=== PATIENT | female | born 1980 | race Caucasian/White ===

== ENCOUNTER 2017-07-22 06:35 | Day surgery (SDC) | payer BC ==
[~2017-07-22 06:35] MED LIST: Lactated Ringers 1,000 ML IV SCH; Lidocaine 1%/Sod Bicarbonate in NS 8.4% 1 ML Syringe PRN; Sodium Chloride 0.9% 10 ML Syringe FLUSH PRN
[2017-07-22] MEDS ORDERED: Propofol 200 MG/20 ML SDV ONE (07:26)
--- NOTE | 2017-07-22 07:43 | PCM.PREANE ---
Preanesthetic Assessment - Anesthesia/Transfusion/Family Hx Anesthesia History: Prior Anesthesia Reaction (PONV) Family History of Anesthesia Reaction: No Transfusion History: No Prior Transfusion(s) Intubation History: Unknown - Review of Systems General: No Symptoms Pulmonary: No Symptoms Cardiovascular: No Symptoms Gastrointestinal: No Symptoms Neurological: No Symptoms Other: Reports: None - Physical Assessment NPO Status Date: 07/21/17 NPO Status Time: 21:30 Pulse: 55 O2 Sat by Pulse Oximetry: 99 Respiratory Rate: 16 Blood Pressure: 103/70 Vital Signs: Last Vital Signs Temp 37.2 C 07/22/17 07:05 Pulse 55 L 07/22/17 07:05 Resp 16 07/22/17 07:05 BP 103/70 07/22/17 07:05 Pulse Ox 99 07/22/17 07:05 Height: 1.78 m Weight: 73.936 kg ASA Class: 1 Mental Status: Alert & Oriented x3 Airway Class: Mallampati = 1 Dentition: Reports: Normal Dentition Thyro-Mental Finger Breadths: 3 Mouth Opening Finger Breadths: 3 ROM/Head Extension: Full Lungs: Clear to Auscultation, Normal Respiratory Effort Cardiovascular: Regular Rate, Regular Rhythm - Allergies Allergies/Adverse Reactions: Allergies Allergy/AdvReac Type Severity Reaction Status Date / Time hydrocodone Allergy Nausea and Verified 07/21/17 12:47 Vomiting - Acknowledgements Anesthesia Type Planned: MAC Pt an Appropriate Candidate for the Planned Anesthesia: Yes Alternatives and Risks of Anesthesia Discussed w Pt/Guardian: Yes Pt/Guardian Understands and Agrees with Anesthesia Plan: Yes PreAnesthesia Questionnaire HEENT History: Reports: Allergic Rhinitis, Impaired Vision Cardiovascular History: Reports: None Respiratory History: Reports: None Gastrointestinal History: Reports: GERD Other Gastrointestinal History: bloating, heartburn, severe dyspepsia Genitourinary History: Reports: None [employer] History: Reports: Other OB/BYN History: HPV, dyspareunia, irreg menses, metrorrhagia, cervical intraepithelial neoplasia Musculoskeletal History: Reports: None, Other (See Below) Neurological History: Reports: Migraines, Neuropathy, Peripheral, Other (See Below) (pt states has neck pain due to nerves-has them 'burned' with relief, ROM not affected) Psychiatric History: Reports: Anxiety, Other (See Below) Other Psychiatric History: insomnia Endocrine/Metabolic History: Reports: None Hematologic History: Reports: None Immunologic History: Reports: None Oncologic (Cancer) History: Reports: None, Malignant Melanoma Dermatologic History: Reports: Melanoma, Other (See Below) Other Dermatologic History: viral rash - Past Surgical History Head Surgeries/Procedures: Reports: None HEENT Surgical History: Reports: Naso-Sinus Surgery Cardiovascular Surgical History: Reports: None Respiratory Surgical History: Reports: None GI Surgical History: Reports: None Female Surgical History: Reports: Hysterectomy, LEEP, Oophorectomy Male Surgical History: Reports: None Neurological Surgical History: Reports: None Oncologic Surgical History: Reports: None - SUBSTANCE USE Smoking Status *Q: Never Smoker Second Hand Smoke Exposure: No Days Per Week of Alcohol Use: 1 Number of Drinks Per Day: 1 Total Drinks Per Week: 1 Recreational Drug Use History: No - HOME MEDS Home Medications: Home Meds Gabapentin [Gabapentin] 300 mg PO TID 10/25/15 [History] LORazepam [LORazepam] 0.5 mg PO Q8H PRN 10/25/15 [History] Zolpidem [Ambien] 10 mg PO BEDTIME PRN 10/25/15 [History] traMADol [Ultram ER] 200 mg PO BEDTIME PRN 10/25/15 [History] Montelukast [Singulair] 10 mg PO DAILY 07/21/17 [History] Omeprazole 20 mg PO DAILY 07/21/17 [History] - CURRENT (IN HOUSE) MEDS Current Meds: Current Medications Lactated Ringer's (Ringers, Lactated) 1,000 mls @ 125 mls/hr IV ASDIRECTED ROSE MARY Stop: 07/22/17 23:00 Last Admin: 07/22/17 07:20 Dose: 125 mls/hr Lidocaine/Sodium Bicarbonate (Buffered Lidocaine 1% In Ns 8.4%) 0.25 ml .XX ONETIME PRN PRN Reason: Prior to IV Start Stop: 07/22/17 18:00 Last Admin: 07/22/17 07:20 Dose: 0.25 ml Sodium Chloride (Saline Flush) 10 ml FLUSH ASDIRECTED PRN PRN Reason: Keep Vein Open Stop: 07/22/17 18:00 Discontinued Medications Propofol (Diprivan 20 Ml) Confirm Administered Dose 200 mg .ROUTE .STK-MED ONE Stop: 07/22/17 07:27
--- NOTE | 2017-07-22 08:26 | PCM48HPAN ---
Post Anesthesia Note - EVALUATION WITHIN 48HRS OF ANESTHETIC Vital Signs in Normal Range: Yes Patient Participated in Evaluation: Yes Respiratory Function Stable: Yes Airway Patent: Yes Cardiovascular Function Stable: Yes Hydration Status Stable: Yes Pain Control Satisfactory: Yes Nausea and Vomiting Control Satisfactory: Yes Mental Status Recovered: Yes
[2017-07-22 08:30] VITALS: BP 94/65
--- NOTE | 2017-07-22 08:30 | PCM.OPNOTE ---
- General Post-Op/Procedure Note Date of Surgery/Procedure: 07/22/17 Operative Procedure(s): Esophagogastroduodenoscopy with proximal and distal: Forceps esophageal biopsies 2. Antral biopsy 1. Findings: Mild antritis. Normal esophagus and normal duodenum and no hiatal hernia. Pre Op Diagnosis: Chronic GERD with epigastric discomfort Post-Op Diagnosis: Antritis chronic Anesthesia Technique: MAC, Moderate Sedation Primary Surgeon: Mushtaq Medel Pathology: Esophageal biopsies along with antral biopsies EBL in mLs: 0 Complications: None Condition: Good Free Text/Narrative:: After adequate IV sedation and analgesia was obtained with monitoring the patient was placed on her left side. A lubricated upper endoscope was inserted through a bite-block into the esophagus and advanced under direct vision towards the stomach with air insufflation. The scope was advanced towards the antrum in which there were linear erythematous streaks without erosions or ulcerations. There were no mass lesions. I advanced the scope into the second part of the duodenum where the ampulla of Vater was seen. The second and first part of the duodenum were endoscopically normal. There were no ulcers. The scope was then withdrawn to the antral region which I biopsied for histologic evaluation. In the retroflexed view there was no hiatal hernia. The fundic and cardiac areas were normal. The stomach folds were also normal. There was no gastritis. With the scope in the distal esophagus and GE junction was sharp at about 32 cm from the incisors. 2 biopsies were taken of this area for evaluation. The body of the esophagus was unremarkable. Within the proximal third I took 2 additional random biopsies for evaluation. On extubation the vocal cords were briefly visualized and were normal. Global Ceo photographs were taken for the patient and for the medical record. There were no procedural complications.
== END 2017-07-22 08:50 | disposition home or self-care (01) ==
LOC: JD.SDS 06:35
PROVIDERS: ATTEND Surgery
DX: K31.9 Disease of stomach and duodenum, unspecified (principal); B33.20 Viral carditis, unspecified; F41.9 Anxiety disorder, unspecified; Z88.8 Allergy status to other drugs, medicaments and biological substances; Z79.899 Other long term (current) drug therapy; Z90.710 Acquired absence of both cervix and uterus
CPT/HCPCS: 43239; J7120; 00740; J2704

== ENCOUNTER 2022-07-17 05:55 | Day surgery (SDC) | payer BC ==
[~2022-07-17 05:55] MED LIST changes: +Lidocaine 1%/Sod Bicarbonate in NS 8.4% 1 ML Syringe IDERM PRN; -Lidocaine 1%/Sod Bicarbonate in NS 8.4% 1 ML Syringe PRN; +Sodium Chloride 0.9% 10 ML Syringe FLUSH SCH
[2022-07-17] MEDS ORDERED: Rocuronium 50 MG/5 ML Vial ONE (06:12)
[2022-07-17] MEDS ORDERED: Ondansetron 4 MG/2 ML SDV ONE ×2 (06:12→06:13)
[2022-07-17] MEDS ORDERED: Lidocaine 1% 5 ML VIAL ONE (06:13)
[2022-07-17] MEDS ORDERED: Midazolam 1 MG/ML 2 ML SDV ONE (06:13)
[2022-07-17] MEDS ORDERED: fentaNYL 100 MCG/2 ML SDV ONE ×2 (06:13→06:14)
[2022-07-17] MEDS ORDERED: Propofol 200 MG/20 ML SDV ONE (06:13)
[2022-07-17] MEDS ORDERED: Dexamethasone 4 MG/ML 5 ML MDV ONE (06:13)
[2022-07-17] MEDS ORDERED: Dexmedetomidine 200 MCG/2 ML SDV ONE (06:19)
[2022-07-17] MEDS ORDERED: Ropivacaine 0.5% 5 MG/ML 30 ML SDV ONE (06:23)
[2022-07-17] MEDS ORDERED: EPINEPHrine 1 MG/ML SDV ONE (06:23)
[2022-07-17] MEDS ORDERED: ceFAZolin 2 GM Vial ONE (06:50)
[2022-07-17] MEDS ORDERED: EPINEPHrine 1 MG/ML 30 ML MDV IRR SCH (07:30)
[2022-07-17] MEDS ORDERED: Scopolamine 1.5 MG Transdermal Patch TRDERM ONE (07:30)
[2022-07-17] MEDS ORDERED: fentaNYL 100 MCG/2 ML SDV IVPUSH PRN (07:43)
[2022-07-17] MEDS ORDERED: HYDROmorphone 0.5 MG/0.5 ML Syringe IVPUSH PRN (07:43)
[2022-07-17] MEDS ORDERED: Ondansetron 4 MG/2 ML SDV IVPUSH PRN (07:43)
[2022-07-17] MEDS ORDERED: ePHEDrine 50 MG/ML SDV ONE (08:24)
[2022-07-17] MEDS ORDERED: Neostigmine Methylsulfate 10 MG/10 ML MDV ONE (08:37)
[2022-07-17] MEDS ORDERED: Lactated Ringers 1,000 ML ONE (08:40)
[2022-07-17] MEDS ORDERED: Ketorolac 30 MG/ML SDV ONE (09:00)
[2022-07-17 11:45] VITALS: BP 101/63; PULSE 61
== END 2022-07-17 11:02 | disposition home or self-care (01) ==
LOC: JD.SDS 05:55
PROVIDERS: ATTEND Orthopaedic Surgery
DX: S46.111A Strain of muscle, fascia and tendon of long head of biceps, right arm, initial encounter (principal); M19.011 Primary osteoarthritis, right shoulder; M75.22 Bicipital tendinitis, left shoulder; F41.9 Anxiety disorder, unspecified; F32.A Depression, unspecified; K21.9 Gastro-esophageal reflux disease without esophagitis; G62.9 Polyneuropathy, unspecified; G47.00 Insomnia, unspecified; G43.909 Migraine, unspecified, not intractable, without status migrainosus; Z79.899 Other long term (current) drug therapy; Z88.5 Allergy status to narcotic agent; Z98.890 Other specified postprocedural states; Z90.710 Acquired absence of both cervix and uterus
CPT/HCPCS: 29823; 29824; 29828; A9270; J0171; J0690; J1100; J1885; J2250; J2405; J2704; J2710; J2795; J3010; J7120; 01630; 64415; 76942

== ENCOUNTER 2024-09-22 07:24 | Day surgery (SDC) | payer BC ==
[~2024-09-22 07:24] MED LIST changes: -Lactated Ringers 1,000 ML IV SCH; -Lidocaine 1%/Sod Bicarbonate in NS 8.4% 1 ML Syringe IDERM PRN
[2024-09-22] MEDS ORDERED: Midazolam 1 MG/ML 2 ML SDV ONE (07:40)
[2024-09-22] MEDS ORDERED: Propofol 200 MG/20 ML SDV ONE ×4 (07:40→09:50)
[2024-09-22] MEDS: Lactated Ringers 1,000 ML IV SCH (07:40)
[2024-09-22] MEDS ORDERED: Lidocaine 1% 4 ML ONE (08:02)
[2024-09-22] MEDS ORDERED: Lidocaine 1% 20 ML MDV ONE (08:14)
[2024-09-22] MEDS ORDERED: Lactated Ringers 1,000 ML ONE (09:49)
[2024-09-22 11:02] VITALS: BP 117/58; PULSE 74
== END 2024-09-22 11:10 | disposition home or self-care (01) ==
LOC: JD.SDS 07:24
PROVIDERS: ATTEND Surgery
DX: Z12.11 Encounter for screening for malignant neoplasm of colon (principal); E04.2 Nontoxic multinodular goiter; K21.9 Gastro-esophageal reflux disease without esophagitis; F41.9 Anxiety disorder, unspecified; F32.A Depression, unspecified; Z79.899 Other long term (current) drug therapy
CPT/HCPCS: 10005; 10006; 45378; J2250; J2704; J7120; J3490